=== PATIENT | male | born 1970 | race American Indian/Alaskan Native ===

== ENCOUNTER 2017-05-29 06:22 | Emergency (ER) | payer OTHER ==
[2017-05-29 06:42] VITALS: BP 126/85
--- NOTE | 2017-05-29 07:27 | XRay Report ---
FINAL REPORT EXAM: XR CHEST ROUTINE 2V HISTORY: cough/URI TECHNIQUE: PA and lateral views of the chest were submitted. FINDINGS: Heart size and mediastinum appear normal. The lungs are clear. Pleural fluid is not seen. The bones and soft tissues do not show any acute changes. IMPRESSION: No active chest disease.
[2017-05-29] MEDS ORDERED: ROBITUSSIN PO ONE (08:23)
--- NOTE | 2017-05-29 08:23 | Emergency Department Report ---
Minor Respiratory - HPI Chief Complaint: Upper Respiratory Infection Stated Complaint: BODY CHILLS, COUGH Time Seen by Provider: 05/29/17 07:45 Duration: 1 week Severity: mild Minor Respiratory: Yes Able to Tolerate Fluids, Yes Cough, No Rhinorrhea, No Sore Throat, No Ear Pain, No Sick Contacts, No Hemoptysis, No Chest Pain, No Shortness of Breath, No Fever Other History: This is a 47-year-old male with a history of blood pressure controlled with med presents to ED complaining intermittently, productive, cough last week. Patient denies any history of asthma and COPD. Patient denies fever/nausea/vomiting this chest pain/shortness of breath. ED Review of Systems ROS: Stated complaint: BODY CHILLS, COUGH Other details as noted in HPI Constitutional: denies: chills, fever Eyes: denies: eye pain, eye discharge, vision change ENT: dental pain. denies: ear pain, throat pain, congestion Respiratory: cough. denies: shortness of breath, wheezing Cardiovascular: denies: chest pain, palpitations Endocrine: no symptoms reported Gastrointestinal: denies: abdominal pain, nausea, diarrhea Genitourinary: denies: urgency, dysuria Musculoskeletal: denies: back pain, joint swelling, arthralgia Skin: denies: rash, lesions Neurological: denies: headache, weakness, paresthesias Psychiatric: denies: anxiety, depression Hematological/Lymphatic: denies: easy bleeding, easy bruising ED Past Medical Hx - Past Medical History Previous Medical History?: Yes Hx Hypertension: Yes - Surgical History Past Surgical History?: No - Social History Smoking Status: Current Every Day Smoker Substance Use Type: Alcohol, Marijuana - Medications Home Medications: Home Medications Medication Instructions Recorded Confirmed Last Taken Type Benzonatate [Tessalon Perles] 100 mg PO Q8HR #20 capsule 05/29/17 Unknown Rx guaiFENesin [Mucinex] 600 mg PO BID #20 tab.er.12h 05/29/17 Unknown Rx Minor Respiratory Exam - Exam General: Vital signs noted. No distress. Alert and acting appropriately. HEENT: Yes Moist Mucous Membranes, No Pharyngeal Erythema, No Pharyngeal Exudates, No Rhinorrhea, No Conjuctival Injection, No Frontal Tenderness, No Maxillary Tenderness Ear: Neither TM Bulge, Neither TM Erythema, Neither EAC Pain, Neither EAC Discharge Neck: Yes Supple, No Adenopathy Lungs: Yes Good Air Exchange, No Wheezes, No Ronchi, No Stridor, No Cough, No Labored Respirations, No Retractions, No Use of Accessory Muscles, No Other Abnormal Lung Sounds Heart: Yes Regular, No Murmur Abdomen: Yes Normal Bowel Sounds, No Tenderness, No Peritoneal Signs Skin: No Rash, No Edema Neurologic: Alert and oriented, no deficits. Musculoskeletal: Unremarkable. ED Course Vital Signs 05/29/17 05/29/17 06:36 06:39 Temperature 98.5 F 98.5 F Pulse Rate 76 76 Respiratory 18 18 Rate Blood Pressure 126/85 126/85 O2 Sat by Pulse 99 99 Oximetry ED Medical Decision Making - Radiology Data Radiology results: report reviewed, image reviewed cc: ED DOC, Fluoro Time In Minutes: FINAL REPORT EXAM: XR CHEST ROUTINE 2V HISTORY: cough/URI TECHNIQUE: PA and lateral views of the chest were submitted. FINDINGS: Heart size and mediastinum appear normal. The lungs are clear. Pleural fluid is not seen. The bones and soft tissues do not show any acute changes. IMPRESSION: No active chest disease. Transcribed By: RB Dictated By: CINDY BARNETT MD Electronically Authenticated By: CINDY BARNETT MD Signed Date/Time: 05/29/17722 - Medical Decision Making 47-year-old male presents with bronchitis ED course: Patient had no episodes in the ED pt recieved Robitussin and prednisone in ED. Chest x-ray shows no acute findings, see report above. I discussed his findings with the patient I discussed the patient follow-up with his primary care physician. Patient will be sent home on cough suppressant medication. Patient is in no acute or respiratory distress He understands instructions given as an deficits. Critical care attestation.: If time is entered above; I have spent that time in minutes in the direct care of this critically ill patient, excluding procedure time. ED Disposition Clinical Impression: Bronchitis Disposition: [id number] TO HOME OR SELFCARE Is pt being admited?: No Does the pt Need Aspirin: No Condition: Stable Instructions: Chronic Bronchitis (ED), Acute Bronchitis (ED) Additional Instructions: Make sure to follow up with the primary care physician as discussed. Take all your medications as you've been prescribed. If you have any worsening symptoms or develop new symptoms please return to ED immediately. Prescriptions: Benzonatate [Tessalon Perles] 100 mg PO Q8HR #20 capsule guaiFENesin [Mucinex] 600 mg PO BID #20 tab.er.12h Referrals: PRIMARY CARE, [Primary Care Provider] - 3-5 Days [facility] [Outside] - 3-5 Days [facility] [Outside] - 3-5 Days Forms: Accompanied Note, Work/School Release Form(ED) Time of Disposition: 08:44
[2017-05-29] MEDS ORDERED: DELTASONE PO ONE (08:24)
== END 2017-05-29 08:59 | disposition home or self-care (01) ==
LOC: ED 06:22
DX: J40 Bronchitis, not specified as acute or chronic (principal); I10 Essential (primary) hypertension; F17.200 Nicotine dependence, unspecified, uncomplicated; F12.10 Cannabis abuse, uncomplicated
CPT/HCPCS: 71046; 99283; J7512